=== PATIENT | male | born 1960 | race Caucasian/White ===

== ENCOUNTER 2016-10-23 17:45 | Emergency (ER) | payer OTHER ==
[~2016-10-23] VITALS: Ht 182.9 cm; Wt 107.7 kg
[~2016-10-23 17:45] MED LIST: ADV250/50 INH; ALDACTONE25 MG PO; AMBIEN CR6.25 M1 PO; BUPROPION HCL100 MG PO; CELEBREX200 MG PO; CYCLOBENZAPRINE10 M3 PO; CYMBALTA60 M1 PO; DEPAKOTE500 MG PO; ELAVIL25 MG PO; FOLIC ACID1 MG PO; LAC PO; LEVAQUIN750 MG PO; LORAZEPAM2 MG PO; LYRICA100 M1 PO; MELOXICAM15 M1 PO; MERCAPTOPURINE50 M1 PO; NOR10T PO; NORCO1 TA1 PO; POTASSIUM CHLOR8 MEQ PO; PROVENTIL0.09 MG/A1 INH; XARELTO15 M1 PO
[2016-10-23 19:10] VITALS: BP 133/67
== END 2016-10-23 19:10 | disposition home or self-care (01) ==
LOC: ED 17:45
DX: S03.41XA Sprain of jaw, right side, initial encounter (principal); S05.01XA Injury of conjunctiva and corneal abrasion without foreign body, right eye, initial encounter; Z72.0 Tobacco use; Y04.2XXA Assault by strike against or bumped into by another person, initial encounter; Y93.89 Activity, other specified; Y99.8 Other external cause status; Y92.89 Other specified places as the place of occurrence of the external cause

== ENCOUNTER 2016-12-27 09:36 | Emergency (ER) | payer OTHER ==
[~2016-12-27] VITALS: Ht 182.9 cm; Wt 100.8 kg
[2016-12-27 12:13] VITALS: BP 137/65
[2016-12-27 12:28] LABS: CALCIUM 8.6 mg/dL (8.5-10.1); CARBON DIOXIDE 28.3 mmol/L (21-32); CHLORIDE SERUM 109 mmol/L (98-107); CREATININE SERUM 0.8 mg/dL (0.7-1.3); GFR1 > 60 mL/min; GLUCOSE SERUM 103 mg/dL (74-106); POTASSIUM SERUM 3.7 mmol/L (3.5-5.1); SODIUM SERUM 142 mmol/L (136-145)
[2016-12-27 12:33] LABS: ALKALINE PHOSPHATASE 55 U/L (46-116); ALT/SGPT 35 U/L (16-63); AMYLASE 25 U/L (25-115); AST/SGOT 20 U/L (15-37); BILIRUBIN TOTAL 0.34 mg/dL (0.20-1.00); LIPASE 124 IU/L (73-393); TOTAL PROTEIN, SERUM 6.4 g/dL (6.4-8.2)
[2016-12-27 12:34] LABS: ALBUMIN 3.2 g/dL (3.4-5.0)
[2016-12-27 13:41] LABS: BASOPHIL % 0.5 % (0-2); PLATELET COUNT 151 x10^3mcL (130-400); RED CELL DISTRIBUTION WIDTH 13.8 % (11.5-14.5)
== END 2016-12-27 14:50 | disposition home or self-care (01) ==
LOC: ED 09:36
PROVIDERS: Emergency Medicine
DX: K52.9 Noninfective gastroenteritis and colitis, unspecified (principal); J45.909 Unspecified asthma, uncomplicated; Z91.010 Allergy to peanuts
CPT/HCPCS: 83880; J1885; J7030

== ENCOUNTER 2016-12-29 16:40 | Emergency (ER) | payer OTHER ==
[2016-12-29 16:51] VITALS: BP 129/70
== END 2016-12-29 18:19 | disposition home or self-care (01) ==
LOC: ED 16:40
DX: I87.8 Other specified disorders of veins (principal); Z91.010 Allergy to peanuts

== ENCOUNTER 2017-02-07 21:42 | Emergency (ER) | payer OTHER ==
[2017-02-07 23:50] VITALS: BP 129/93
== END 2017-02-07 23:50 | disposition home or self-care (01) ==
LOC: ED 21:42
DX: G89.29 Other chronic pain (principal); M25.562 Pain in left knee; F31.9 Bipolar disorder, unspecified; W18.39XA Other fall on same level, initial encounter; Y93.89 Activity, other specified; Y92.89 Other specified places as the place of occurrence of the external cause; Y99.8 Other external cause status

== ENCOUNTER 2017-09-07 22:51 | Emergency (ER) | payer OTHER ==
[~2017-09-07] VITALS: Ht 182.9 cm; Wt 101.8 kg
[2017-09-07 23:11] VITALS: Ht 182.9 cm; Wt 101.8 kg
[2017-09-07 23:45] VITALS: BP 121/80
== END 2017-09-07 23:45 | disposition home or self-care (01) ==
LOC: ED 22:51
DX: B35.3 Tinea pedis (principal); J45.909 Unspecified asthma, uncomplicated; J44.9 Chronic obstructive pulmonary disease, unspecified; F31.9 Bipolar disorder, unspecified; Z91.010 Allergy to peanuts

== ENCOUNTER 2017-10-03 13:32 | Inpatient (IN) | payer OTHER ==
[~2017-10-03] VITALS: Ht 182.9 cm; Wt 108.9 kg
[~2017-10-03 13:32] MED LIST changes: -NOR10T PO
[2017-10-03 13:40] VITALS: Ht 182.9 cm; Wt 108.9 kg
[2017-10-03 15:16] LABS: BASOPHIL % 0.8 % (0-2); PLATELET COUNT 197 x10^3mcL (130-400); RED CELL DISTRIBUTION WIDTH 13.8 % (11.5-14.5)
[2017-10-03 15:32] LABS: CALCIUM 8.9 mg/dL (8.5-10.1); CARBON DIOXIDE 24.4 mmol/L (21-32); CHLORIDE SERUM 107 mmol/L (98-107); GFR1 > 60 mL/min; GLUCOSE SERUM 110 mg/dL (74-106); POTASSIUM SERUM 3.7 mmol/L (3.5-5.1); SODIUM SERUM 140 mmol/L (136-145)
[2017-10-03 15:36] LABS: ALKALINE PHOSPHATASE 79 U/L (46-116); ALT/SGPT 26 U/L (16-63); AST/SGOT 20 U/L (15-37); BILIRUBIN TOTAL 0.35 mg/dL (0.20-1.00); TOTAL PROTEIN, SERUM 6.5 g/dL (6.4-8.2)
[2017-10-03 15:41] LABS: ALBUMIN 2.9 g/dL (3.4-5.0)
[2017-10-03 15:48] LABS: UA SPECIFIC GRAVITY 1.025 (1.005-1.035); microscopic required? YES; urine erythrocyte NEGATIVE (NEGATIVE)
[2017-10-03 17:32] VITALS: BP 120/73
[2017-10-03 17:42] LABS: CHOLESTEROL/HDL RATIO 4.9; MAGNESIUM 1.9 mg/dL (1.8-2.4); PHOSPHOROUS 3.3 mg/dL (2.5-4.9)
[2017-10-03 17:43] LABS: T3 TOTAL 0.86 ng/mL
[2017-10-03 17:45] LABS: FREE T4 0.92 ng/dL (0.76-1.46); FREE THYROXINE INDEX 1.9 ug/dL (1.4-4.5); T4(THYROXINE) 5.9 ug/dL (4.7-13.3)
[2017-10-03 18:22] LABS: AMPHETAMINE QUAL UR NONE DETECTED (See below)
[2017-10-04] MEDS ORDERED: XARELTO10 M1 PO ×2 (12:41→13:43)
[2017-10-04] MEDS ORDERED: KEFLEX500 M1 PO (13:41)
[2017-10-04] MEDS ORDERED: NOR10T PO (13:41)
== END 2017-10-03 20:12 | disposition left against medical advice (07) | DRG 203 ==
LOC: ED 13:32 → DU 16:28
PROVIDERS: Emergency Medicine; Family Medicine
DX: M94.0 Chondrocostal junction syndrome [Tietze] (principal); E44.0 Moderate protein-calorie malnutrition; F17.210 Nicotine dependence, cigarettes, uncomplicated; F31.9 Bipolar disorder, unspecified; F32.9 Major depressive disorder, single episode, unspecified; G89.29 Other chronic pain; D64.9 Anemia, unspecified; E78.5 Hyperlipidemia, unspecified; E66.9 Obesity, unspecified; Z53.21 Procedure and treatment not carried out due to patient leaving prior to being seen by health care provider; R73.03 Prediabetes; J44.9 Chronic obstructive pulmonary disease, unspecified; Z86.718 Personal history of other venous thrombosis and embolism; Z91.010 Allergy to peanuts; Z90.49 Acquired absence of other specified parts of digestive tract; Z82.49 Family history of ischemic heart disease and other diseases of the circulatory system; Z82.0 Family history of epilepsy and other diseases of the nervous system; Z68.30 Body mass index [BMI] 30.0-30.9, adult
CPT/HCPCS: 83880; 84439; Q0092

== ENCOUNTER 2017-10-03 20:23 | Inpatient (IN) | payer OTHER ==
[~2017-10-03] VITALS: Ht 182.9 cm; Wt 108.9 kg
[2017-10-03 20:30] VITALS: Ht 182.9 cm; Wt 108.9 kg
[2017-10-03 23:17] VITALS: BP 125/82
[2017-10-04 05:37] VITALS: BP 106/56
[2017-10-04 09:10] LABS: CALCIUM 8.8 mg/dL (8.5-10.1); CARBON DIOXIDE 23.5 mmol/L (21-32); CHLORIDE SERUM 108 mmol/L (98-107); GFR1 > 60 mL/min; GLUCOSE SERUM 120 mg/dL (74-106); POTASSIUM SERUM 3.8 mmol/L (3.5-5.1); SODIUM SERUM 141 mmol/L (136-145)
[2017-10-04 09:17] LABS: BASOPHIL % 0.7 % (0-2); PLATELET COUNT 183 x10^3mcL (130-400); RED CELL DISTRIBUTION WIDTH 13.7 % (11.5-14.5)
[2017-10-04 10:02] VITALS: BP 106/55
[2017-10-04] MEDS ORDERED: XARELTO10 M1 PO ×2 (12:41→13:43)
[2017-10-04 13:13] VITALS: BP 143/74
[2017-10-04 13:35] VITALS: BP 143/74
[2017-10-04] MEDS ORDERED: NOR10T PO (13:41)
[2017-10-04] MEDS ORDERED: KEFLEX500 M1 PO (13:41)
== END 2017-10-04 14:23 | disposition home or self-care (01) | DRG 203 ==
LOC: ED 20:23 → DU 22:07
PROVIDERS: Family Medicine
DX: M94.0 Chondrocostal junction syndrome [Tietze] (principal); E44.0 Moderate protein-calorie malnutrition; I24.8 Other forms of acute ischemic heart disease; F12.10 Cannabis abuse, uncomplicated; D64.9 Anemia, unspecified; R73.03 Prediabetes; E78.5 Hyperlipidemia, unspecified; F17.210 Nicotine dependence, cigarettes, uncomplicated; J44.9 Chronic obstructive pulmonary disease, unspecified; E02 Subclinical iodine-deficiency hypothyroidism; Z68.30 Body mass index [BMI] 30.0-30.9, adult; Z91.14 Patient's other noncompliance with medication regimen; Z86.718 Personal history of other venous thrombosis and embolism; Z79.01 Long term (current) use of anticoagulants; Z86.711 Personal history of pulmonary embolism; Z82.49 Family history of ischemic heart disease and other diseases of the circulatory system; Z81.8 Family history of other mental and behavioral disorders; Z72.89 Other problems related to lifestyle; Z91.010 Allergy to peanuts
CPT/HCPCS: 85378; J1644; Q0092; Q9967

== ENCOUNTER 2017-10-21 21:33 | Emergency (ER) | payer OTHER ==
[~2017-10-21] VITALS: Ht 182.9 cm; Wt 100.7 kg
[~2017-10-21 21:33] MED LIST changes: +KEFLEX500 M1 PO; +NOR10T PO; +XARELTO10 M1 PO
[2017-10-21 21:54] VITALS: Ht 182.9 cm; Wt 100.7 kg
[2017-10-21 23:33] VITALS: BP 122/54
== END 2017-10-21 23:34 | disposition home or self-care (01) ==
LOC: ED 21:33
DX: M17.0 Bilateral primary osteoarthritis of knee (principal); J45.909 Unspecified asthma, uncomplicated; J44.9 Chronic obstructive pulmonary disease, unspecified; Z91.010 Allergy to peanuts
CPT/HCPCS: J2001

== ENCOUNTER 2017-11-01 03:12 | Emergency (ER) | payer OTHER ==
[~2017-11-01] VITALS: Ht 182.9 cm; Wt 103.6 kg
[2017-11-01 03:24] VITALS: Ht 182.9 cm; Wt 103.6 kg
[2017-11-01 04:03] VITALS: BP 118/72
== END 2017-11-01 04:03 | disposition home or self-care (01) ==
LOC: ED 03:12
DX: G89.29 Other chronic pain (principal); M25.561 Pain in right knee; J44.9 Chronic obstructive pulmonary disease, unspecified; J45.998 Other asthma; F31.9 Bipolar disorder, unspecified; Z91.010 Allergy to peanuts

== ENCOUNTER 2018-06-18 18:46 | Emergency (ER) | payer OTHER ==
[~2018-06-18] VITALS: Ht 182.9 cm; Wt 107.7 kg
[2018-06-18 18:52] VITALS: Ht 182.9 cm; Wt 107.7 kg
[2018-06-18 19:20] LABS: BASOPHIL % 0.3 % (0-2); PLATELET COUNT 254 x10^3mcL (130-400); RED CELL DISTRIBUTION WIDTH 13.9 % (11.5-14.5)
[2018-06-18 19:31] LABS: CALCIUM 8.8 mg/dL (8.5-10.1); CARBON DIOXIDE 23.3 mmol/L (21-32); CHLORIDE SERUM 106 mmol/L (98-107); GFR1 > 60 mL/min; GLUCOSE SERUM 92 mg/dL (74-106); SODIUM SERUM 142 mmol/L (136-145)
[2018-06-18 19:36] LABS: ALBUMIN 3.3 g/dL (3.4-5.0); ALKALINE PHOSPHATASE 73 U/L (46-116); ALT/SGPT 25 U/L (16-63); AST/SGOT 11 U/L (15-37); BILIRUBIN TOTAL 0.2 mg/dL (0.20-1.00); TOTAL PROTEIN, SERUM 7.1 g/dL (6.4-8.2)
[2018-06-18 20:26] VITALS: BP 138/87
== END 2018-06-18 20:26 | disposition home or self-care (01) ==
LOC: ED 18:46
PROVIDERS: Emergency Medicine
DX: J45.901 Unspecified asthma with (acute) exacerbation (principal); J44.9 Chronic obstructive pulmonary disease, unspecified; F17.210 Nicotine dependence, cigarettes, uncomplicated; F32.9 Major depressive disorder, single episode, unspecified; Z91.010 Allergy to peanuts
CPT/HCPCS: 36415; 83880; 99406; J7620; Q0092

== ENCOUNTER 2019-02-24 12:48 | Emergency (ER) | payer OTHER ==
[~2019-02-24] VITALS: Ht 182.9 cm; Wt 113.4 kg
[2019-02-24 13:06] VITALS: Ht 182.9 cm; Wt 113.4 kg
[2019-02-24 13:50] LABS: CALCIUM 9.2 mg/dL (8.5-10.1); CARBON DIOXIDE 29.1 mmol/L (21-32); CHLORIDE SERUM 107 mmol/L (98-107); CREATININE SERUM 0.9 mg/dL (0.7-1.3); GFR1 > 60 mL/min; GLUCOSE SERUM 105 mg/dL (74-106); POTASSIUM SERUM 4.2 mmol/L (3.5-5.1); SODIUM SERUM 142 mmol/L (136-145)
[2019-02-24 14:00] LABS: BASOPHIL % 0.6 % (0-2); PLATELET COUNT 192 x10^3mcL (130-400); RED CELL DISTRIBUTION WIDTH 13.9 % (11.5-14.5)
[2019-02-24 15:33] VITALS: BP 152/81
== END 2019-02-24 15:25 | disposition home or self-care (01) ==
LOC: ED 12:48
PROVIDERS: Emergency Medicine
DX: S20.211A Contusion of right front wall of thorax, initial encounter (principal); M54.9 Dorsalgia, unspecified; J44.9 Chronic obstructive pulmonary disease, unspecified; F31.9 Bipolar disorder, unspecified; Z91.010 Allergy to peanuts; W22.8XXA Striking against or struck by other objects, initial encounter; Y93.39 Activity, other involving climbing, rappelling and jumping off; Y92.810 Car as the place of occurrence of the external cause; Y99.8 Other external cause status
CPT/HCPCS: 36415; J1885

== ENCOUNTER 2019-03-03 17:31 | Emergency (ER) | payer OTHER ==
[~2019-03-03] VITALS: Ht 182.9 cm; Wt 114.8 kg
[2019-03-03 17:35] VITALS: Ht 182.9 cm; Wt 114.8 kg
[2019-03-03 21:20] LABS: BASOPHIL % 0.6 % (0-2); PLATELET COUNT 205 x10^3mcL (130-400); RED CELL DISTRIBUTION WIDTH 13.8 % (11.5-14.5)
[2019-03-03 22:43] LABS: microscopic required? NO
[2019-03-03 22:48] LABS: UA SPECIFIC GRAVITY 1.025 (1.005-1.035); urine erythrocyte NEGATIVE (NEGATIVE)
[2019-03-03 23:40] VITALS: BP 117/81
== END 2019-03-03 23:40 | disposition home or self-care (01) ==
LOC: ED 17:31
PROVIDERS: Emergency Medicine
DX: M54.9 Dorsalgia, unspecified (principal); S20.211A Contusion of right front wall of thorax, initial encounter; J44.9 Chronic obstructive pulmonary disease, unspecified; Z91.010 Allergy to peanuts; X58.XXXA Exposure to other specified factors, initial encounter; Y93.02 Activity, running; Y92.810 Car as the place of occurrence of the external cause; Y99.8 Other external cause status
CPT/HCPCS: 36415; J1885

== ENCOUNTER 2019-08-30 12:33 | Emergency (ER) | payer OTHER ==
[~2019-08-30] VITALS: Ht 182.9 cm; Wt 119.3 kg
[2019-08-30 12:49] VITALS: Ht 182.9 cm; Wt 119.3 kg
[2019-08-30 13:49] LABS: BASOPHIL % 0.5 % (0-2); PLATELET COUNT 191 x10^3mcL (130-400); RED CELL DISTRIBUTION WIDTH 14.1 % (11.5-14.5)
[2019-08-30 14:22] LABS: CALCIUM 8.4 mg/dL (8.5-10.1); CARBON DIOXIDE 26.3 mmol/L (21-32); CHLORIDE SERUM 105 mmol/L (98-107); GFR1 > 60 mL/min; GLUCOSE SERUM 114 mg/dL (74-106); POTASSIUM SERUM 4.2 mmol/L (3.5-5.1); SODIUM SERUM 140 mmol/L (136-145)
[2019-08-30 14:27] LABS: ALKALINE PHOSPHATASE 71 U/L (46-116); ALT/SGPT 22 U/L (16-63); AST/SGOT 14 U/L (15-37); BILIRUBIN TOTAL 0.4 mg/dL (0.20-1.00); TOTAL PROTEIN, SERUM 6.3 g/dL (6.4-8.2); URIC ACID 5.4 mg/dL (3.5-7.2)
[2019-08-30 14:30] LABS: ALBUMIN 3.2 g/dL (3.4-5.0)
[2019-08-30 15:15] VITALS: BP 126/84
== END 2019-08-30 15:15 | disposition home or self-care (01) ==
LOC: ED 12:33
PROVIDERS: Emergency Medicine
DX: M77.52 Other enthesopathy of left foot and ankle (principal); L98.9 Disorder of the skin and subcutaneous tissue, unspecified; B35.3 Tinea pedis
CPT/HCPCS: 36415; 99406; J1885; Q0092

== ENCOUNTER 2019-10-06 13:13 | Emergency (ER) | payer OTHER ==
[~2019-10-06] VITALS: Ht 182.9 cm; Wt 117.5 kg
[2019-10-06 13:23] VITALS: Ht 182.9 cm; Wt 117.5 kg
[2019-10-06 14:53] LABS: UA SPECIFIC GRAVITY >=1.030 (1.005-1.035); microscopic required? YES; urine erythrocyte 2+ (NEGATIVE)
[2019-10-06 15:03] LABS: BASOPHIL % 0.5 % (0-2); PLATELET COUNT 319 x10^3mcL (130-400); RED CELL DISTRIBUTION WIDTH 13.5 % (11.5-14.5)
[2019-10-06 15:11] LABS: CALCIUM 9.2 mg/dL (8.5-10.1); CARBON DIOXIDE 25.7 mmol/L (21-32); CREATININE SERUM 1.7 mg/dL (0.7-1.3); POTASSIUM SERUM 4.2 mmol/L (3.5-5.1)
[2019-10-06 15:17] LABS: BILIRUBIN TOTAL 0.2 mg/dL (0.20-1.00); TOTAL PROTEIN, SERUM 7.7 g/dL (6.4-8.2)
[2019-10-06 15:20] LABS: ALBUMIN 2.7 g/dL (3.4-5.0)
[2019-10-06 18:21] VITALS: BP 122/55
== END 2019-10-06 18:21 | disposition home or self-care (01) ==
LOC: ED 13:13
PROVIDERS: Emergency Medicine
DX: N39.0 Urinary tract infection, site not specified (principal); F31.9 Bipolar disorder, unspecified; J45.909 Unspecified asthma, uncomplicated; E66.9 Obesity, unspecified; Z68.35 Body mass index [BMI] 35.0-35.9, adult; Z98.890 Other specified postprocedural states; Z91.010 Allergy to peanuts
CPT/HCPCS: J0696; J1885; J2405; J7030; J7060